=== PATIENT | male | born 1965 | race Caucasian/White ===

== ENCOUNTER → 2020-02-04 19:06 | Outpatient (ROUT) | payer OTHER, SELFPAY ==
[2020-02-04 20:03] LABS: Hematocrit 40.8 % (41-53); Hemoglobin 13.5 g/dL (13.5-17.5); Mean Corpuscular HGB Conc 33.1 % (30-36); Mean Corpuscular Hemoglobin 30.8 PG (26-34); Mean Corpuscular Volume 93.2 fL (80-100); Platelet Count 239 X10^3/uL (150-400); Red Blood Cell Count 4.38 X10^6/uL (4.5-5.9); Red Cell Distribution Width 13.7 % (11.6-14.8); White Blood Cell Count 6.2 X10^3/uL (4.5-11.0)
[2020-02-04 20:08] LABS: Alanine Aminotransferase 21 IU/L (<50); Albumin 4.3 g/dL (3.5-5.0); Albumin Globulin Ratio 1.5 (1.0-2.8); Alkaline Phosphatase 100 U/L (38-126); Aspartate Aminotransferase 27 IU/L (17-59); BUN Creatinine Ratio 22.5 (6-22); Bilirubin Total 0.9 mg/dL (0.2-1.3); Blood Urea Nitrogen 16 mg/dL (9-20); Calcium 9.3 mg/dL (8.4-10.2); Carbon Dioxide 27 mmol/L (22-32); Chloride 105 mmol/L (98-107); Cholesterol 170 mg/dL (140-199); Estimated Glomerular Filt Rate > 60.0 mL/min (>60); Globulin 2.8 g/dL (1.7-4.1); Glucose 89 mg/dL (70-100); HDL Cholesterol 62 mg/dL (40-60); HEMOLYSIS < 15 (0-50); LDL Cholesterol Calculated 89 mg/dL (<100); Potassium 4.2 mmol/L (3.4-5.1); Sodium 138 mmol/L (137-145); Total Protein 7.1 g/dL (6.3-8.2); Triglycerides 93 mg/dL (35-150)
[2020-02-04 20:35] LABS: Prostate Specific Antigen 0.599 ng/mL (0.10-4.00)
[2020-02-04 20:37] LABS: TSH w/ Reflex to FT4 1.83 uIU/mL (0.47-4.68)
== END ==
PROVIDERS: Family Provider Physician Assistant; PCP Physician Assistant; Visit Provider Internal Medicine
DX: Z00.00 Encounter for general adult medical examination without abnormal findings (principal); I48.91 Unspecified atrial fibrillation
CPT/HCPCS: 80053; 80061; 84153; 84443; 85027

== ENCOUNTER → 2020-04-17 19:03 | Outpatient (ROUT) | payer OTHER, SELFPAY ==
[2020-04-17 19:16] LABS: Add Manual Diff / Slide Review NO; Basophils Absolute Auto 0 /uL (0-100); Basophils Percent Auto 0.3 % (0-2); Eosinophils Absolute Auto 100 /uL (0-450); Eosinophils Percent Auto 0.8 % (2-4); Hematocrit 41.6 % (41-53); Hemoglobin 13.8 g/dL (13.5-17.5); Lymphocytes Absolute Auto 1200 /uL (1100-4500); Lymphocytes Percent Auto 15.4 % (25-40); Mean Corpuscular HGB Conc 33.2 % (30-36); Mean Corpuscular Volume 93.4 fL (80-100); Monocytes Absolute Auto 600 /uL (0-900); Monocytes Percent Auto 7.2 % (3-14); Neutrophils Absolute Auto 5900 /uL (1500-7000); Neutrophils Percent Auto 76.3 % (50-75); Platelet Count 276 X10^3/uL (150-400); Red Blood Cell Count 4.46 X10^6/uL (4.5-5.9); Red Cell Distribution Width 13.3 % (11.6-14.8); White Blood Cell Count 7.7 X10^3/uL (4.5-11.0)
== END ==
PROVIDERS: Family Provider Physician Assistant; PCP Physician Assistant; Visit Provider Internal Medicine
DX: K62.5 Hemorrhage of anus and rectum (principal)
CPT/HCPCS: 85025

== ENCOUNTER 2021-12-03 21:04 | Emergency (ER) | payer OTHER, SELFPAY ==
[2021-12-03 21:39] VITALS: BP 147/80; PULSE 71; RESP 18; TEMP 36.8; O2SAT 98; BMI 20.9
--- NOTE | 2021-12-03 22:01 | DI.RAD.S_ITS ---
PROCEDURE: XR ABDOMEN MIN 2V INDICATIONS: constipation TECHNIQUE: 2 views of the abdomen were acquired. COMPARISON: None. FINDINGS: Surgical changes and devices: None. Bowel: No pneumoperitoneum. The bowel gas pattern demonstrates moderate colonic stool distention within the ascending colon consistent with history of constipation. No definite abnormal dilated small bowel loops to suggest small bowel obstruction. Soft tissues: No suspicious abdominal calcifications. Bones: No suspicious bony abnormalities. IMPRESSION: 1. Moderate stool distention in the ascending colon consistent with patient's history of constipation. 2. No definite bowel obstruction. Dictated by: Paulino Wasserman M.D. on 12/03/2021 at 23:06 Approved by: Paulino Wasserman M.D. on 12/03/2021 at 23:07
[2021-12-03 22:19] LABS: COVID19 -Nasal RAPID Negative (Negative)
--- NOTE | 2021-12-03 23:18 | ED_ITS ---
HPI - General Adult General Chief complaint: Abdominal Pain Stated complaint: Head fog, dizzy, shakey, constipation Time Seen by Provider: 12/03/21 22:42 Source: patient Mode of arrival: Ambulatory Limitations: no limitations History of Present Illness HPI narrative: 56-year-old male who is here for evaluation abdominal pain, constipation, having a fall he had and feeling very shaky. He was seen recently at an outside facility where he had a abdominal x-ray and CT scan that showed large stool burden in the colon. He was sent home with because state and instructions for taking MiraLax. He has had no prior abdominal surgeries. He states that today after he ate some food he started to feel poorly. Has not had a bowel movement since starting the medications approximately 24 hours ago. Denies urinary sym ptoms. No fevers. Related Data Home Medications Medication Instructions Recorded Confirmed sertraline 100 mg tablet 100 mg PO QDAY ##0 12/27/16 Allergies Allergy/AdvReac Type Severity Reaction Status Date / Time No Known Allergies Allergy Uncoded 09/27/17 11:55 Review of Systems Constitutional Constitutional: Reports as per HPI and Reports system reviewed and no additional complaints, except as documented Cardiovascular Cardiovascular: Reports system reviewed and no additional complaints, except as documented Respiratory Respiratory: Reports system reviewed and no additional complaints, except as documented Gastrointestinal Gastrointestinal: Reports as per HPI and Reports system reviewed and no additional complaints, except as documented Genitourinary Genitourinary: Reports system reviewed and no additional complaints, except as documented Hematologic/Lymphatic On Anticoagulants: No Patient History Social History Smoking Status: Never smoker Smoking Status: Never smoker alcohol intake frequency: 0-2 drinks per day Substance Use Type: does not use Exam Initial Vital Signs Initial Vital Signs: Vital Signs Temperature 98.2 F 12/03/21 21:39 Pulse Rate 71 12/03/21 21:39 Respiratory Rate 18 12/03/21 21:39 Blood Pressure 147/80 H 12/03/21 21:39 Pulse Oximetry 98 12/03/21 21:39 Oxygen Delivery Method 12/03/21 21:39 Const General: cooperative and comfortable HENMT Head: normal to inspection and normocephalic Resp Effort & Inspection: normal respiratory effort Auscultation: clear to auscultation bilaterally Cardio Rate: regular rate Rhythm: regular rhythm GI Inspection: normal to inspection and non-distended Palpation: soft, No firm and No tender Skin General: no rashes or lesions noted Extrem General: normal to inspection and capillary refill normal Course Orders Ordered: ED Orders 12/03/21 21:48 COVID19 -Nasal RAPID/Pre-Proc Stat 12/03/21 22:01 XR abdomen min 2V Stat 12/03/21 23:00 Complete Blood Count AUTO DIFF Stat Lipase Stat 12/03/21 23:43 Comprehensive Metabolic Panel Stat Discontinued Medications Sodium Biphosphate/Sodium Phosphate (Fleets Enema) 1 each NM NOW ONE Stop: 12/03/21 23:19 Last Admin: 12/03/21 23:58 Dose: 1 each Documented By: THADDEUS Vital Signs Vital signs: Vital Signs - 8 hr 12/03/21 21:39 12/04/21 01:13 Temperature 98.2 F Pulse Rate 71 65 Respiratory Rate 18 Blood Pressure 147/80 H 116/58 L Pulse Oximetry 98 98 Oxygen Delivery Method Room Air Room Air Medical Decision Making Lab Data Lab results reviewed: Yes I reviewed the patient's lab results. Result diagrams: 12/03/21 23:00 Labs: Lab Results 12/03/21 12/03/21 12/03/21 Range/Units 21:48 23:00 23:00 WBC 6.2 (4.5-11.0) X10^3/uL RBC 4.25 L (4.5-5.9) X10^6/uL Hgb 13.6 (13.5-17.5) g/dL Hct 38.9 L (41-53) % MCV 91.6 (80-100) fL MCH 32.0 (26-34) PG MCHC 34.9 (30-36) % RDW 12.9 (11.6-14.8) % Plt Count 208 (150-400) X10^3/uL Neut % (Auto) 64.0 (50-75) % Lymph % (Auto) 22.9 L (25-40) % [place] % (Auto) 10.7 (3-14) % Eos % (Auto) 2.0 (2-4) % Baso % (Auto) 0.4 (0-2) % Neut # (Auto) 4000 (2246-5230) /uL Lymph # (Auto) 1400 (7852-1525) /uL [place] # (Auto) 700 (0-900) /uL Eos # (Auto) 100 (0-450) /uL Baso # (Auto) 0 (0-100) /uL Total Counted Cancelled Seg Neutrophils % Cancelled Band Neutrophils % Cancelled Lymphocytes % (Manual) Cancelled Atypical Lymphs % Cancelled Monocytes % (Manual) Cancelled Eosinophils % (Manual) Cancelled Basophils % (Manual) Cancelled Metamyelocytes % Cancelled Myelocytes % Cancelled Promyelocytes % Cancelled Blast Cells % Cancelled Neutrophils # (Manual) Cancelled Nucleated RBCs Cancelled Differential Comment Cancelled Hypersegmented Neuts Cancelled Reactive Lymphocytes Cancelled Plasma Cells Cancelled Smudge Cells Cancelled Other Cell Type Cancelled Toxic Granulation Cancelled Toxic Vacuolation Cancelled Dohle Bodies Cancelled Jennifer Rods Cancelled WBC Morphology Comment Cancelled Platelet Estimate Cancelled Clumped Platelets Cancelled Plt Morphology Comment Cancelled RBC Morphology Cancelled Dimorphic RBCs Cancelled Polychromasia Cancelled Hypochromasia Cancelled Poikilocytosis Cancelled Basophilic Stippling Cancelled Anisocytosis Cancelled Microcytosis Cancelled Macrocytosis Cancelled Spherocytes Cancelled Pappenheimer Bodies Cancelled Sickle Cells Cancelled Target Cells Cancelled Tear Drop Cells Cancelled Ovalocytes Cancelled Stomatocytes Cancelled Helmet Cells Cancelled [place] Bodies Cancelled [place] Rings Cancelled Jayden Cells Cancelled Acanthocytes (Spur) Cancelled Rouleaux Cancelled Schistocytes Cancelled Lipase 73 (23-300) U/L SARS-CoV-2 (PCR) Negative (Negative) Imaging Data Abdominal x-ray: Radiologist's Impression: [address] [address] XRay Report Signed Patient: Richard Euceda MR#: [id number] : 1965 Acct:[id number] Age/Sex: 56 / M Date of Service: 12/03/21 Loc: ED Accession Number: [id number] ?? Procedure: XR abdomen min 2V Ordering Provider: Richard Kimbrough D.O. PROCEDURE:? XR ABDOMEN MIN 2V ? INDICATIONS:? constipation ? TECHNIQUE:? 2 views of the abdomen were acquired.? ? COMPARISON:? None. ? FINDINGS:? Surgical changes and devices:? None.? ? Bowel:? No pneumoperitoneum.? The bowel gas pattern demonstrates moderate colonic stool distention within the ascending colon consistent with history of constipation.? No definite abnormal dilated small bowel loops to suggest small bowel obstruction. ? Soft tissues:? No suspicious abdominal calcifications.? ? Bones:? No suspicious bony abnormalities.? ? IMPRESSION:? ? 1. Moderate stool distention in the ascending colon consistent with patient's history of constipation. ? 2. No definite bowel obstruction.? ? ? Dictated by: Paulino Wasserman M.D. on 12/03/2021 at 23:06 ? ? Approved by: Paulino Wasserman M.D. on 12/03/2021 at 23:07?? MDM Narrative Medical decision making narrative: Within the past 24 hours patient has had an x-ray of his abdomen and a CT scan of his abdomen which showed no acute pathology other than constipation. Was able to review the results of the studies. The x-ray of his abdomen today again shows stool burden that would be consistent with constipation in the correct clinical setting. He has a benign abdominal exam. Had unremarkable labs over the past 24 hours. We did discuss constipation. Enema here in the emergency d epartment resulted in a very small bowel movement although the patient states he does feel somewhat better afterwards. I feel that we can hold on any repeat CT scanning for now based on his presentation. We had a long discussion regarding a bowel regiment that he can do at home. He was given return precautions and follow-up instructions. He expressed understanding and agreement. Discharge Plan Departure Patient Disposition: Home Clinical Impression: Abdominal pain, Constipation Instructions: DI for Constipation Activity Restrictions/Additional Instructions: I recommend that you start on the bowel regimen like we discussed to include laxatives such as MiraLax. Be sure you are staying hydrated. Return to the emergency department for new symptoms to include fevers, worsening abdominal pain, inability to tolerate any oral intake or any other worsening symptoms. Prescriptions: No Action sertraline 100 MG tablet 100 mg PO QDAY Qty: 0 Referrals: Bee Mcadams PA-C [Primary Care Provider] - Visit Report Forms: Patient Portal/API
[2021-12-03 23:26] LABS: Add Manual Diff / Slide Review NO; Basophils Absolute Auto 0 /uL (0-100); Basophils Percent Auto 0.4 % (0-2); Eosinophils Absolute Auto 100 /uL (0-450); Hematocrit 38.9 % (41-53); Hemoglobin 13.6 g/dL (13.5-17.5); Lymphocytes Absolute Auto 1400 /uL (1100-4500); Lymphocytes Percent Auto 22.9 % (25-40); Mean Corpuscular HGB Conc 34.9 % (30-36); Mean Corpuscular Volume 91.6 fL (80-100); Monocytes Absolute Auto 700 /uL (0-900); Monocytes Percent Auto 10.7 % (3-14); Neutrophils Absolute Auto 4000 /uL (1500-7000); Platelet Count 208 X10^3/uL (150-400); Red Blood Cell Count 4.25 X10^6/uL (4.5-5.9); Red Cell Distribution Width 12.9 % (11.6-14.8); White Blood Cell Count 6.2 X10^3/uL (4.5-11.0)
[2021-12-03] MEDS: FLEETS ENEMA 1 EACH PR (23:58)
[2021-12-04 00:23] LABS: Lipase 73 U/L (23-300)
[2021-12-04 01:13] VITALS: BP 116/58; PULSE 65; O2SAT 98
[2021-12-04 02:52] LABS: Alanine Aminotransferase 22 IU/L (<50); Albumin 4.2 g/dL (3.5-5.0); Albumin Globulin Ratio 1.4 (1.0-2.8); Alkaline Phosphatase 77 U/L (38-126); Aspartate Aminotransferase 34 IU/L (17-59); BUN Creatinine Ratio 14.3 (6-22); Blood Urea Nitrogen 11 mg/dL (9-20); Carbon Dioxide 26 mmol/L (22-32); Chloride 97 mmol/L (98-107); Estimated Glomerular Filt Rate > 60 mL/min (>60); Globulin 2.9 g/dL (1.7-4.1); Glucose 113 mg/dL (70-100); HEMOLYSIS < 15 (0-50); Potassium 3.7 mmol/L (3.4-5.1); Sodium 132 mmol/L (137-145); Total Protein 7.1 g/dL (6.3-8.2)
== END 2021-12-04 01:14 | disposition home or self-care (01) ==
PROVIDERS: Emergency Provider Emergency Medicine; Family Provider Physician Assistant; PCP Physician Assistant
DX: R10.9 Unspecified abdominal pain (principal); K59.00 Constipation, unspecified; Z20.822 Contact with and (suspected) exposure to COVID-19
CPT/HCPCS: 36415; 74019; 80053; 83690; 85025; 87635; 99283; 99284; C9803